=== PATIENT | male | born 1970 | race Caucasian/White ===

== ENCOUNTER 2017-12-02 16:50 | Emergency (ER) | payer OTHER ==
[2017-12-02] MEDS ORDERED: TDAP ADULT 0.5 ML INJ (BOOSTRIX) IM ONE (17:00)
[2017-12-02] MEDS ORDERED: CEPHALEXIN 500 MG CAP PO ONE (17:00)
--- NOTE | 2017-12-02 17:04 | EDPHY ---
H & P Time Seen by Provider: 12/02/17 17:00 HPI/ROS: CHIEF COMPLAINT: Laceration left hand from circular saw HISTORY OF PRESENT ILLNESS: 46-year-old immunocompetent male with out-of-date tetanus, right-hand dominant, was holding a circular saw his right hand cutting branches with slipped sustaining laceration to the dorsal aspect of the left thumb proximal phalanx as well as the radial aspect of the left 2nd MCP. No paresthesia. No sensory or motor deficit. Occurred shortly prior to arrival PHYSICAL EXAM (Prior to examination, patient consented to physical exam, hands were washed and my usual and customary physical exam procedures followed) 1) GENERAL: Well-developed, well-nourished, alert and oriented. Appears to be in no acute distress. 2) HEAD: Normocephalic 3) HEENT: sclera anicteric 4) LUNGS: Breathing comfortably. 5) SKIN: Left hand: Left thumb dorsal aspect proximal phalanx 2 cm laceration. Radial aspect of the 2nd MCP 4 cm irregular laceration. 6) MUSCULOSKELETAL: Left thumb: Opposition, abduction abduction extension flexion intact no deficits. Left 2nd digit: FDP FDS intact, two-point discrimination intact distally, extensor function at the MCP PIP D IP intact. 7) NEUROLOGIC: Full sensation two-point discrimination intact to the 1st and 2nd digits. Smoking Status: Former smoker Constitutional: Initial Vital Signs Temperature (C) 36.6 C 12/02/17 16:51 Heart Rate 73 12/02/17 16:51 Respiratory Rate 18 12/02/17 16:51 Blood Pressure 106/66 12/02/17 16:51 O2 Sat (%) 99 12/02/17 16:51 O2 Delivery Mode Room Air Allergies/Adverse Reactions: No Known Allergies Allergy (Verified 12/02/17 16:51) Home Medications: Medication Instructions Recorded Cephalexin [Keflex] 500 mg PO TID 7 Days cap 12/02/17 MDM/Departure - MDM Imaging Results: Imaging Impressions Hand X-Ray 12/02/17 17:01 Impression: Negative left hand radiographs. Procedures: Procedure: Laceration repair 1. I explained the indications, risks and benefits for both laceration repair and anesthetic administration. Verbal consent was obtained from the patient. The laceration on the left thumb was anesthetized using 0.5% bupivicaine without epinephrine. After anesthetic administered the patient was observed for a period of time and had no apparent adverse effects. The wound was cleaned, prepped, draped in normal sterile fashion and explored to its base. No foreign body seen, no foreign bodies palpated. There were no deep structures involved. No tendon injury was identified. The wound was repaired with 4 simple interrupted 5 O Ethilon suture . The wound repair was simple. The procedure was performed by myself. Patient has been informed that scarring will occur, although efforts have been made to minimize this. Procedure: Laceration repair 2. I explained the indications, risks and benefits for both laceration repair and anesthetic administration. Verbal consent was obtained from the patient and parent. The laceration on the left 2nd digit was anesthetized using 0.5% bupivicaine without epinephrine. After anesthetic administered the patient was observed for a period of time and had no apparent adverse effects. The wound was cleaned, prepped, draped in normal sterile fashion and explored to its base. No foreign body seen, no foreign bodies palpated. There were no deep structures involved. No tendon injury was identified. The wound was repaired with 11 simple interrupted 5 O Ethilon sutures . The wound repair was complex. The procedure was performed by myself. Patient has been informed that scarring will occur, although efforts have been made to minimize this. Procedure: Splint A Velcro thumb spica splint was applied by ER instrument and controls technician to minimize stress on the area of laceration After application of the splint I returned and re- examined the patient. The splint was adequately immobilizing the joint and distal to the splint the patient's circulation and sensation were intact. Patient shows no signs of compartment syndrome. Was given orthopedic precautions. Medications Given: Discontinued Medications Cephalexin HCl (Keflex) 500 mg PO EDNOW ONE PRN Reason: Protocol Stop: 12/02/17 17:01 Last Admin: 12/02/17 17:12 Dose: 500 mg Diphtheria/Tetanus/Acell Pertussis (Boostrix) 0.5 ml IM .ONCE ONE Stop: 12/02/17 17:01 Last Admin: 12/02/17 17:09 Dose: 0.5 ml - Depart Disposition: Home, Routine, Self-Care Clinical Impression: Contact with powered saw as cause of accidental injury Laceration of left hand Qualifiers: Encounter type: initial encounter Foreign body presence: without foreign body Qualified Code(s): S61.412A - Laceration without foreign body of left hand, initial encounter Condition: Good Instructions: Laceration (ED) Additional Instructions: Return to the ER if you develop redness, swelling, discharge, warmth to the wound, red streaks going up your arm, or any other symptoms that concern you. Your sutures need to be removed in 10 days Prescriptions: Cephalexin [Keflex] 500 mg PO TID 7 Days cap Referrals: Audie Mary MD [Medical Doctor] - 2-3 days, call for appt.
[2017-12-02 18:13] VITALS: BP 115/75
== END 2017-12-02 18:11 | disposition home or self-care (01) ==
PROC: 0HQGXZZ Repair Left Hand Skin, External Approach (ICD-10-PCS; principal; 2017-12-02)
DX: S61.412A Laceration without foreign body of left hand, initial encounter (principal); Z23 Encounter for immunization; W27.0XXA Contact with workbench tool, initial encounter; Y93.H2 Activity, gardening and landscaping; Z87.891 Personal history of nicotine dependence